=== PATIENT | male | born 1955 | race African-American/Black ===

== ENCOUNTER 2017-08-13 12:21 | Inpatient (IN) | payer OTHER ==
[~2017-08-13] VITALS: Ht 182.9 cm; Wt 112.5 kg
[2017-08-13] VITALS (17 sets, daily range): BP systolic 151–196; BP diastolic 70–93; PULSE 84–105; RESP 18–27; TEMP 98.4–98.9; O2SAT 99–100
[~2017-08-13 12:21] MED LIST: ATEN-102 PO; CLON-352 PO; DIAZ10; FURO1TAB93 PO; LISI40TA PO; MELO7.5T PO; MSIR15 PO; OXYC-360 PO; OXYC5 PO; PROT40TA PO; TERA1CAP8 PO; TRAZ50TA4 PO; TRIX0.07 TOP; VIAG50TA PO
[2017-08-13] MEDS ORDERED: EPINEPHrine HCL (1:1000) 1 MG/ML VIAL IM ONE (12:30)
[2017-08-13] MEDS ORDERED: FAMOTIDINE 20 MG/2 ML VIAL IV PUSH ONE (12:30)
[2017-08-13] MEDS ORDERED: SODIUM CHLORIDE 0.9% FLUSH 10 ML FLUSH IV FLUSH PRN (12:30)
[2017-08-13] MEDS ORDERED: SODIUM CHLOR 0.9% 1000 ML INJ 1,000 ML IV ONE (12:38)
[2017-08-13] MEDS ORDERED: ETOMIDATE 40 MG/20 ML VIAL ONE (12:39)
[2017-08-13] MEDS ORDERED: SUCCINYLCHOLINE CHLORIDE 200 MG/10 ML VIAL ONE (12:40)
[2017-08-13] MEDS ORDERED: MIDAZOLAM HCL 5 MG/ML VIAL (1 ML) IV PUSH ONE (12:45)
[2017-08-13] MEDS ORDERED: SUCCINYLCHOLINE CHLORIDE 200 MG/10 ML VIAL IV PUSH ONE (12:45)
[2017-08-13] MEDS ORDERED: ETOMIDATE 20 MG/10 ML VIAL IVP ONE (12:45)
[2017-08-13] MEDS ORDERED: SODIUM CHLORIDE 0.9% FLUSH 10 ML FLUSH IVF PRN (12:45)
[2017-08-13 12:54] LABS: AUTOMATED NEUTROPHIL # 3.6 TH/MM3 (1.8-7.7); BASOPHIL # 0.1 TH/MM3 (0-0.2); BASOPHIL % 0.7 % (0.0-2.0); EOSINOPHIL # 0.2 TH/MM3 (0-0.4); EOSINOPHIL % 2.6 % (0.0-4.0); HEMATOCRIT 37.3 % (39.0-51.0); HEMOGLOBIN 12.3 GM/DL (13.0-17.0); LYMPH % 36.6 % (9.0-44.0); LYMPHOCYTE # 2.9 TH/MM3 (1.0-4.8); MEAN CELL VOLUME 94.9 FL (80.0-100.0); MEAN CORPUSCULAR HEMOGLOBIN 31.4 PG (27.0-34.0); MEAN CORPUSCULAR HGB CONC 33.1 % (32.0-36.0); MEAN PLATELET VOLUME 8.2 FL (7.0-11.0); MONO % 14.6 % (0.0-8.0); MONOCYTE # 1.1 TH/MM3 (0-0.9); NEUT % 45.5 % (16.0-70.0); PLATELET COUNT 225 TH/MM3 (150-450); RED BLOOD COUNT 3.93 MIL/MM3 (4.50-5.90); RED CELL DISTRIBUTION WIDTH 15.3 % (11.6-17.2); WHITE BLOOD COUNT 7.9 TH/MM3 (4.0-11.0)
[2017-08-13] MEDS ORDERED: SODIUM CHLOR 0.9% 250 ML INJ 250 ML IV ONE (13:00)
[2017-08-13] MEDS ORDERED: PROPOFOL 500 MG/50 ML INJ 50 ML ONE (13:03)
[2017-08-13] MEDS ORDERED: fentaNYL CITRATE 250 MCG/5 ML AMP ONE (13:09)
[2017-08-13 13:30] LABS: BICARBONATE 22.4 MEQ/L (21.0-32.0); CALCIUM 8.4 MG/DL (8.5-10.1); CREATININE 1.7 MG/DL (0.60-1.30)
--- NOTE | 2017-08-13 13:31 | PD ---
HPI Chief Complaint: Allergic/Adverse Reaction Time Seen by Provider: 12:29 Travel History International Travel<30 days: No Contact w/Intl Traveler<30days: No Traveled to known affect area: No History of Present Illness HPI The patient 62-year-old old. He arrives with a complaint of dyspnea scratchy sensation in the throat. He has a history of angioedema from lisinopril in the past. He reports taking a new medication for muscle spasms just prior to the onset of the lower lip swelling. Shortly thereafter a scratchy sensation followed by with the patient described as difficulty speaking led to a PA evaluation which ended up with the patient coming to the ED. He received 50 mg IV Benadryl 125 mg IV Solu-Medrol and epinephrine prior to ER arrival. Symptoms initially started at 8 AM this morning. He does not recall the name of the muscle relaxant that he believes might be related to the swelling. PFSH Past Medical History Arthritis: Yes Asthma: No Autoimmune Disease: Yes (IMPAIRED GLUCOSE) Anxiety: Yes Heart Rhythm Problems: No Cancer: No Cardiovascular Problems: Yes High Cholesterol: Yes Chemotherapy: No Chest Pain: Yes Congestive Heart Failure: No Cerebrovascular Accident: No Diabetes: Yes (TYPE II) Patient Takes Glucophage: No Gastrointestinal Disorders: Yes GERD: Yes Genitourinary: Yes (INCONTINENCE) Headaches: Yes Hepatitis: Yes (HEP C) Hiatal Hernia: No Hypertension: Yes Immune Disorder: No Kidney Stones: No Musculoskeletal: Yes (DJD) Neurologic: No Psychiatric: No Reproductive: No Respiratory: No Migraines: No Radiation Therapy: No Renal Failure: Yes (UNSURE IF HE STILL HAS IT) Seizures: No Sickle Cell Disease: No Sleep Apnea: No Triglycerides - High: Yes Ulcer: Yes (STOMACH) Past Surgical History Abdominal Surgery: Yes (COLONOSCOPY) AICD: No Arteriovenous Shunt: No Cardiac Surgery: No Ear Surgery: No Endocrine Surgery: No Eye Surgery: No Genitourinary Surgery: No Gynecologic Surgery: No Insulin Pump: No Joint Replacement: No Neurologic Surgery: Yes (CERVICAL LAMINECTOMY 05/20/06) Oral Surgery: No Pacemaker: No Thoracic Surgery: No Other Surgery: Yes Social History Alcohol Use: No Tobacco Use: Yes Substance Use: No Allergies-Medications (Allergen,Severity, Reaction): Coded Allergies: aspirin (Unverified Allergy, Severe, RASH, LIP SWELLING, 08/13/17) diclofenac (Unverified Allergy, Severe, RASH, 08/13/17) etodolac (Unverified Allergy, Severe, RASH, 08/13/17) flurbiprofen (Unverified Allergy, Severe, RASH, 08/13/17) ibuprofen (Unverified Allergy, Severe, RASH, 08/13/17) indomethacin (Unverified Allergy, Severe, RASH, 08/13/17) ketoprofen (Unverified Allergy, Severe, RASH, 08/13/17) ketorolac (Unverified Allergy, Severe, RASH, 08/13/17) naproxen (Unverified Allergy, Severe, RASH, 08/13/17) oxaprozin (Unverified Allergy, Severe, RASH, 08/13/17) methocarbamol (Unverified Allergy, Mild, 08/13/17) penicillin G (Unverified Allergy, Mild, VOMITS, 08/13/17) Uncoded Allergies: NSAIDS (Allergy, Severe, SWELLS UP, 04/30/12) ALL NSAIDS (Allergy, Intermediate, 04/09/09) Reported Meds & Prescriptions Reported Meds & Active Scripts Active Reported Hytrin (Terazosin HCl) 1 Mg Cap 2 Mg PO HS Percocet (Oxycodone/Acetaminophen) 5 Mg/325 Mg Tab 1-2 Tab PO Q4H PRN FOR PAIN Trazodone Hcl (Trazodone HCl) 50 Mg Tab 25 Mg PO HS Protonix (Pantoprazole Sodium) 40 Mg Tabdr 40 Mg PO DAILY Morphine Sulfate IR 15 mg (Morphine Sulfate) 15 Mg Tab 30 Mg PO BID PRN Mobic (Meloxicam) 7.5 Mg Tab 7.5 Mg PO DAILY Prinivil (Lisinopril) 40 Mg Tab 20 Mg PO DAILY Clonidine Hcl (Clonidine HCl) 0.1 Mg Tab 0.2 Mg PO Q8 Capsaicin 0.075 % Cre 0.075 % TOP QID Oxycodone (Oxycodone HCl) 5 Mg Tab 15 Mg PO Q6 Viagra (Sildenafil Citrate) 50 Mg Tab 50 Mg PO DIRECTED Lasix (Furosemide) 40 Mg Tab 40 Mg PO DAILY Atenolol 50 Mg Tab 50 Mg PO BID Valium (Diazepam) 10 Mg Tab HS Review of Systems Except as stated in HPI: all other systems reviewed are Neg General / Constitutional: No: Fever Physical Exam Narrative GENERAL: 62-year-old male pleasant well-nourished well-developed, the patient can speak with a scratchy voice temp 97.4 Vital Signs Date Time Temp Pulse Resp B/P (MAP) Pulse Ox O2 Delivery O2 Flow Rate FiO2 08/13/17 12:59 84 20 161/70 (100) 100 Non-Rebreather 15.00 08/13/17 12:39 87 144/88 08/13/17 12:30 100 Non-Rebreather 15.00 08/13/17 12:30 79 20 100 Room Air 15.00 08/13/17 12:30 100 Non-Rebreather 15.00 08/13/17 12:27 92 22 100 SKIN: Warm and dry. HEAD: Atraumatic. Normocephalic. EYES: Pupils equal and round. No scleral icterus. No injection or drainage. ENT: No nasal bleeding or discharge. Mucous membranes pink and moist. There is generalized swelling about the lower lip with some lingual edema as well. The posterior oropharynx is not visualized. NECK: Trachea midline. No JVD. CARDIOVASCULAR: Regular rate and rhythm. RESPIRATORY: No stridor. No tachypnea. GASTROINTESTINAL: Abdomen soft, non-tender, nondistended. Hepatic and splenic margins not palpable. MUSCULOSKELETAL: Extremities without clubbing, cyanosis, or edema. No obvious deformities. NEUROLOGICAL: Awake and alert. No obvious cranial nerve deficits. Motor grossly within normal limits. Five out of 5 muscle strength in the arms and legs. Normal speech. PSYCHIATRIC: Appropriate mood and affect; insight and judgment normal. Data Data Last Documented VS Vital Signs Date Time Temp Pulse Resp B/P (MAP) Pulse Ox O2 Delivery O2 Flow Rate FiO2 08/13/17 12:59 84 20 161/70 (100) 100 Non-Rebreather 15.00 Orders Orders Basic Metabolic Panel (Bmp) (08/13/17 12:29) Complete Blood Count With Diff (08/13/17 12:29) Ecg Monitoring (08/13/17 12:29) Iv Access Insert/Monitor (08/13/17 12:29) Oximetry (08/13/17 12:29) Famotidine Inj (Pepcid Inj) (08/13/17 12:30) Sodium Chloride 0.9% Flush (Ns Flush) (08/13/17 12:30) Epinephrine (1:1000) Inj (Adrenalin (1:1 (08/13/17 12:30) Chest, Single Ap (08/13/17 12:38) Arterial Blood Gas (Abg) (08/13/17 12:38) Ecg Monitoring (08/13/17 12:38) Iv Access Insert/Monitor (08/13/17 12:38) Ng Gastric Tube Insert/Monitor (08/13/17 12:38) Urinary Catheter Insert/Apply (08/13/17 12:38) Oximetry (08/13/17 12:38) Oxygen Administration (08/13/17 12:38) Etomidate Inj (Amidate Inj) (08/13/17 12:45) Fentanyl Inj (Fentanyl Inj) (08/13/17 12:45) Succinylcholine Inj (Quelicin Inj) (08/13/17 12:45) Midazolam Inj (Versed Inj) (08/13/17 12:45) Sodium Chloride 0.9% Flush (Ns Flush) (08/13/17 12:45) Sodium Chlor 0.9% 1000 Ml Inj (Ns 1000 M (08/13/17 12:38) Etomidate Inj (Amidate Inj) (08/13/17 12:39) Succinylcholine Inj (Quelicin Inj) (08/13/17 12:40) Fresh Frozen Plasma (Ffp) (08/13/17 12:49) Blood Product Administration (08/13/17 12:49) Sodium Chlor 0.9% 250 Ml Inj (Ns 250 Ml (08/13/17 13:00) Propofol 500 Mg/50 Ml Inj (Diprivan 500 (08/13/17 13:03) Abo/Rh Blood Type (08/13/17 12:49) Fentanyl Inj (Fentanyl Inj) (08/13/17 13:09) Admit Order (Ed Use Only) (08/13/17 ) Ice Cutter / Telemetry TIMBO.Q8H (08/13/17 13:18) Vital Signs (Adult) Q4H (08/13/17 13:18) Diet Npo (08/13/17 Lunch) Activity Bed Rest (08/13/17 13:18) Labs Laboratory Tests Test 08/13/17 12:41 White Blood Count 7.9 TH/MM3 Red Blood Count 3.93 MIL/MM3 Hemoglobin 12.3 GM/DL Hematocrit 37.3 % Mean Corpuscular Volume 94.9 FL Mean Corpuscular Hemoglobin 31.4 PG Mean Corpuscular Hemoglobin Concent 33.1 % Red Cell Distribution Width 15.3 % Platelet Count 225 TH/MM3 Mean Platelet Volume 8.2 FL Neutrophils (%) (Auto) 45.5 % Lymphocytes (%) (Auto) 36.6 % Monocytes (%) (Auto) 14.6 % Eosinophils (%) (Auto) 2.6 % Basophils (%) (Auto) 0.7 % Neutrophils # (Auto) 3.6 TH/MM3 Lymphocytes # (Auto) 2.9 TH/MM3 Monocytes # (Auto) 1.1 TH/MM3 Eosinophils # (Auto) 0.2 TH/MM3 Basophils # (Auto) 0.1 TH/MM3 CBC Comment DIFF FINAL Differential Comment Blood Urea Nitrogen 19 MG/DL Creatinine 1.70 MG/DL Random Glucose 103 MG/DL Calcium Level 8.4 MG/DL Sodium Level 132 MEQ/L Potassium Level 4.4 MEQ/L Chloride Level 101 MEQ/L Carbon Dioxide Level 22.4 MEQ/L Anion Gap 9 MEQ/L Estimat Glomerular Filtration Rate 50 ML/MIN MDM Medical Decision Making Medical Screen Exam Complete: Yes Emergency Medical Condition: Yes Medical Record Reviewed: Yes Differential Diagnosis Angioedema, airway obstruction, allergic reaction Narrative Course Patient's angioedema progressed during his ER stay, during the first 30 minutes of the ER stay. New and progressive left upper lip involvement noted over the first brief period of the ED stay. Pt intubated for prophylactic airway protection. CBC & BMP Diagram 08/13/17 12:41 Calcium Level 8.4 L Last Impressions Chest X-Ray 08/13/17 1238 Signed Impressions: Service Date/Time: August 13:07 - CONCLUSION: 1. ETT in good position. 2. Mild diffuse interstitial prominence likely reflecting interstitial edema. 3. Minimal left lung base airspace disease, likely atelectasis. Ismael Garrido MD Assistance by Drs. Lubin and Criss appreciated. Pt will go to [facility] for ongoing management. Critical Care Narrative Aggregate critical care time was 45 minutes. Time to perform other separately billable procedures was not included in the critical care time. My time did not include minutes spent treating any other patients simultaneously or on activities that did not directly contribute to the patient's treatment. The services I provided to this patient were to treat and/or prevent clinically significant deterioration that could result in: Respiratory arrest I provided critical care services requiring my management, as noted below: Chart data review, documentation time, medication orders and management, vital sign assessments/reviewing monitor data, ordering and reviewing lab tests, ordering and interpreting/reviewing x-rays and diagnostic studies, care of the patient and discussion of the patient with the admitting physicians. Diagnosis Primary Impression: Angio-edema Qualified Codes: T78.3XXA - Angioneurotic edema, initial encounter Additional Impression: Required emergency intubation Admitting Information Admitting Physician Requests: Admit Kyle Cain MD August 13, 2017 13:31
--- NOTE | 2017-08-13 13:36 | RADRPT ---
EXAM DATE/TIME: 08/13/2017 13:07 [facility] COMPARISON: No previous studies available for comparison. INDICATIONS : Post intubation. Patient had an allergic reaction to medicine. MEDICAL HISTORY : Hypertension. Myocardial infarction. Hypercholesterolemia. Renal disease. Arthritis. Diabetes. He p C. SURGICAL HISTORY : Cervical laminectomy. ENCOUNTER: Initial ACUITY: 1 day PAIN SCORE: Non-responsive. LOCATION: Bilateral chest FINDINGS: Patient is intubated with ET tube at the level of the clavicles. The mild airspace disease at the lef t lung base with minimal diffuse interstitial prominence. Cardiomegaly sternal contours are within no rmal limits given portable technique. Bony thorax is intact with fixation hardware in the lower cervi kai spine. CONCLUSION: 1. ETT in good position. 2. Mild diffuse interstitial prominence likely reflecting interstitial edema. 3. Minimal left lung base airspace disease, likely atelectasis. Ismael Garrido MD on August 13, 2017 at 13:32 Board Certified Radiologist. This report was verified electronically.
[2017-08-13] MEDS ORDERED: NURSING INFORMATION XX SCH (13:45)
[2017-08-13] MEDS ORDERED: CHLORHEXIDINE GLUCONATE 2 % 1 PACK (2 CLOTHS) TOP PRN (13:45)
[2017-08-13] MEDS ORDERED: MAGNESIUM OXIDE 400 MG TAB PO PRN (13:45)
[2017-08-13] MEDS ORDERED: POTASSIUM PHOSPHATE MONOBASIC 500 MG TAB PO/TUBE PRN (13:45)
[2017-08-13] MEDS ORDERED: RESP: ALBUTEROL 2.5 MG/IPRATROPIUM 0.5 MG NEB (PRN) INH (13:45)
[2017-08-13] MEDS ORDERED: POTASSIUM PHOSPHATE MONOBASIC 500 MG TAB PO PRN (13:45)
[2017-08-13] MEDS ORDERED: SODIUM PHOSPHATE INJ 30 MMOL in SODIUM CHLOR 0.9% 250 ML INJ 240 ML IV PRN (13:45)
[2017-08-13] MEDS ORDERED: DEXTROSE 50% IN WATER 50 ML VIAL(D50) IV PUSH PRN (13:45)
[2017-08-13] MEDS ORDERED: POTASSIUM CHLOR 20 MEQ PREMIX 100 ML IV PRN ×2 (13:45)
[2017-08-13] MEDS ORDERED: hydrALAZINE HCL 20 MG/ML VIAL IV PUSH PRN (13:45)
[2017-08-13] MEDS ORDERED: MAGNESIUM SULFATE INJ 2 GM in SODIUM CHLORIDE 0.9% INJ 96 ML IV PRN (13:45)
[2017-08-13] MEDS ORDERED: POTASSIUM CHLOR 40 MEQ PREMIX 100 ML IV PRN ×2 (13:45)
[2017-08-13] MEDS ORDERED: MAGNESIUM SULFATE INJ 4 GM in SODIUM CHLORIDE 0.9% INJ 92 ML IV PRN (13:45)
[2017-08-13] MEDS ORDERED: POTASSIUM CHLORIDE 25 MEQ EFFERVESCENT TAB PO PRN (13:45)
[2017-08-13] MEDS ORDERED: POTASSIUM PHOSPHATE INJ 30 MMOL in SODIUM CHLOR 0.9% 250 ML INJ 250 ML IV PRN (13:45)
[2017-08-13] MEDS ORDERED: ONDANSETRON HCL 4 MG/2 ML VIAL IV PUSH PRN (13:45)
[2017-08-13] MEDS ORDERED: NALOXONE HCL 0.4 MG/ML AMP IV PUSH PRN (14:00)
[2017-08-13] MEDS ORDERED: DEXTROSE 5%-LACTATED RING INJ 1,000 ML IV SCH (14:00)
[2017-08-13] MEDS: diphenhydrAMINE HCL 50 MG/ML VIAL IV PUSH SCH ×2 (14:00→20:28)
[2017-08-13] MEDS: PCA - TOTAL MG DILAUDID DELIVERED PER SHIFT OTHER SCH ×2 (14:00→22:00)
--- NOTE | 2017-08-13 14:12 | HHI.HP ---
[facility] Service Critical Care Medicine Primary Care Physician [facility] Admission Diagnosis Angioedema; Intubation Diagnosis: Chief Complaint: mouth swelling Travel History International Travel<30 Days: No Contact w/Intl Traveler <30 Da: No Traveled to Known Affected Are: No History of Present Illness This is a 62yM with history of HTN and prior angioedema with Lisinopril who was driving today and had onset of facial swelling around his lower lip around 8am that progressed to full oral swelling in the same way as his last angioedema episode. He does state he took a pill for back pain this morning that was prescribed for him, and he has not taken before. He has not taken any lisinopril since his last episode of angioedema. he denies any other changes to his medical history. denies any other recent symptoms including chest pain, shortness of breath, fever, chills, n/v/c/d or abdominal pain. per EMS, he received epinephrine, benadryl, solumedrol. in our emergency department he received additional epinephrine and pepcid iv. Despite these therapies, his oral swelling continued and he began to have difficulty phonating and had worsening subjective dyspnea. He also has a history of prior cervical spinal fusion and has very limited neck mobility, as well as large neck circumference at baseline. Multidisciplinary discussion between emergency physician, anesthesiology, and critical care came to the conclusion that early urgent intubation was warranted given anticipated difficult airway and progressive angioedema despite medical therapy. The patient was intubated in the emergency department with video laryngoscopy and then taken to the ICU for ongoing management. Review of Systems Constitutional: DENIES: Diaphoretic episodes, Fatigue, Fever, Chills Eyes: DENIES: Blurred vision, Eye inflammation, Eye pain Ears, nose, mouth, throat: COMPLAINS OF: Throat pain, Hoarseness, DENIES: Hearing loss, Ear Pain, Running Nose, Epistaxis, Sinus Pain, Toothache, Odynophagia Respiratory: COMPLAINS OF: Shortness of breath, DENIES: Apneas, Cough, Snoring , Wheezing, Hemoptysis, Sputum production Cardiovascular: DENIES: Chest pain, Palpitations, Syncope, Dyspnea on Exertion , PND, Lower Extremity Edema Gastrointestinal: COMPLAINS OF: Difficulty Swallowing, DENIES: Abdominal pain, Black stools, Bloody stools, Constipation, Diarrhea, Nausea, Vomiting, Anorexia Musculoskeletal: DENIES: Back pain Neurologic: DENIES: Abnormal gait, Headache, Localized weakness, Paresthesias, Seizures, Speech Problems Psychiatric: DENIES: Anxiety, Confusion, Mood changes, Depression Past Family Social History Allergies: Coded Allergies: aspirin (Unverified Allergy, Severe, RASH, LIP SWELLING, 08/13/17) diclofenac (Unverified Allergy, Severe, RASH, 08/13/17) etodolac (Unverified Allergy, Severe, RASH, 08/13/17) flurbiprofen (Unverified Allergy, Severe, RASH, 08/13/17) ibuprofen (Unverified Allergy, Severe, RASH, 08/13/17) indomethacin (Unverified Allergy, Severe, RASH, 08/13/17) ketoprofen (Unverified Allergy, Severe, RASH, 08/13/17) ketorolac (Unverified Allergy, Severe, RASH, 08/13/17) naproxen (Unverified Allergy, Severe, RASH, 08/13/17) oxaprozin (Unverified Allergy, Severe, RASH, 08/13/17) methocarbamol (Unverified Allergy, Mild, 08/13/17) penicillin G (Unverified Allergy, Mild, VOMITS, 08/13/17) Uncoded Allergies: NSAIDS (Allergy, Severe, SWELLS UP, 04/30/12) ALL NSAIDS (Allergy, Intermediate, 04/09/09) Past Medical History Arthritis Anxiety Hyperlipidemia Type II diabetes Chronic pain syndrome GERD Headaches Urinary Incontinence Hypertension Degenerative Disk Disease Chronic Kidney Disease, unknown stage Hypertriglyceridemia Gastric Ulcer Past Surgical History Colonoscopy cervical laminectomy and fusion 05/20/2006 Reported Medications Hytrin (Terazosin HCl) 1 Mg Cap 2 Mg PO HS Percocet (Oxycodone/Acetaminophen) 5 Mg/325 Mg Tab 1-2 Tab PO Q4H PRN FOR PAIN Trazodone Hcl (Trazodone HCl) 50 Mg Tab 25 Mg PO HS Protonix (Pantoprazole Sodium) 40 Mg Tabdr 40 Mg PO DAILY Morphine Sulfate IR 15 mg (Morphine Sulfate) 15 Mg Tab 30 Mg PO BID PRN Mobic (Meloxicam) 7.5 Mg Tab 7.5 Mg PO DAILY Prinivil (Lisinopril) 40 Mg Tab 20 Mg PO DAILY Clonidine Hcl (Clonidine HCl) 0.1 Mg Tab 0.2 Mg PO Q8 Capsaicin 0.075 % Cre 0.075 % TOP QID Oxycodone (Oxycodone HCl) 5 Mg Tab 15 Mg PO Q6 Viagra (Sildenafil Citrate) 50 Mg Tab 50 Mg PO DIRECTED Lasix (Furosemide) 40 Mg Tab 40 Mg PO DAILY Atenolol 50 Mg Tab 50 Mg PO BID Valium (Diazepam) 10 Mg Tab HS Active Ordered Medications See MAR Family History reviewed and found to be noncontributory to his acute illness Social History + smoker, denies etoh, doa. Physical Exam Vital Signs Vital Signs Date Time Temp Pulse Resp B/P (MAP) Pulse Ox O2 Delivery O2 Flow Rate FiO2 08/13/17 13:15 90 18 196/93 (127) 100 Ventilator 08/13/17 13:10 93 18 179/87 (117) 100 Ventilator 08/13/17 13:05 85 20 159/81 (107) 100 08/13/17 12:59 84 20 161/70 (100) 100 Non-Rebreather 15.00 08/13/17 12:39 87 144/88 08/13/17 12:30 100 Non-Rebreather 15.00 08/13/17 12:30 79 20 100 Room Air 15.00 08/13/17 12:30 100 Non-Rebreather 15.00 08/13/17 12:27 92 22 100 Physical Exam gen: middle-aged male, sitting up in bed, in distress due to dyspnea heent: very large and edematous lower lip and tongue. moderate edema of the upper airway. minimal cervical neck extension and flexion. edentulous. large neck circumference. neck: no jvd. trachea midline. chest: tachypneic. sitting upright. nrb in place. cv: normal rate, regular rhythm. sinus by tele. abd: obese, soft, nontender, nondistended. no guarding. extr: no peripheral edema. distal pulses 2+ neuro: RASS 0. CAM -. GCS 15. follows commands. no focal deficits. Laboratory Laboratory Tests Test 08/13/17 12:41 White Blood Count 7.9 Red Blood Count 3.93 Hemoglobin 12.3 Hematocrit 37.3 Mean Corpuscular Volume 94.9 Mean Corpuscular Hemoglobin 31.4 Mean Corpuscular Hemoglobin Concent 33.1 Red Cell Distribution Width 15.3 Platelet Count 225 Mean Platelet Volume 8.2 Neutrophils (%) (Auto) 45.5 Lymphocytes (%) (Auto) 36.6 Monocytes (%) (Auto) 14.6 Eosinophils (%) (Auto) 2.6 Basophils (%) (Auto) 0.7 Neutrophils # (Auto) 3.6 Lymphocytes # (Auto) 2.9 Monocytes # (Auto) 1.1 Eosinophils # (Auto) 0.2 Basophils # (Auto) 0.1 CBC Comment DIFF FINAL Differential Comment Blood Urea Nitrogen 19 Creatinine 1.70 Random Glucose 103 Calcium Level 8.4 Sodium Level 132 Potassium Level 4.4 Chloride Level 101 Carbon Dioxide Level 22.4 Anion Gap 9 Estimat Glomerular Filtration Rate 50 Result Diagram: 08/13/17 1241 08/13/17 1241 Caprini VTE Risk Assessment Caprini VTE Risk Assessment: Mod/High Risk (score >= 2) Caprini Risk Assessment Model Point Value = 1 Point Value = 2 Point Value = 3 Point Value = 5 Age 41-60 Minor surgery BMI > 25 kg/m2 Swollen legs Varicose veins or History of unexplained or recurrent spontaneous Oral contraceptives or hormone replacement Sepsis (< 1 month) Serious lung disease, including pneumonia (< 1 month) Abnormal pulmonary function Acute myocardial infarction Congestive heart failure (< 1 month) History of inflammatory bowel disease Medical patient at bed rest Age 61-74 Arthroscopic surgery Major open surgery (> 45 min) Laparoscopic surgery (> 45 min) Malignancy Confined to bed (> 72 hours) Immobilizing plaster cast Central venous access Age >= 75 History of VTE Family history of VTE Factor V Leiden Prothrombin [id number] Lupus anticoagulant Anticardiolipin antibodies Elevated serum homocysteine Heparin-induced thrombocytopenia Other congenital or acquired thrombophilia Stroke (< 1 month) Elective arthroplasty Hip, pelvis, or leg fracture Acute spinal cord injury (< 1 month) Prophylaxis Regimen Total Risk Factor Score Risk Level Prophylaxis Regimen 0-1 Low Early ambulation 2 Moderate Order ONE of the following: *Sequential Compression Device (SCD) *Heparin 5000 units SQ BID 3-4 Higher Order ONE of the following medications: *Heparin 5000 units SQ TID *Enoxaparin/Lovenox 40 mg SQ daily (WT < 150 kg, CrCl > 30 mL/min) *Enoxaparin/Lovenox 30 mg SQ daily (WT < 150 kg, CrCl > 10-29 mL/min) *Enoxaparin/Lovenox 30 mg SQ BID (WT < 150 kg, CrCl > 30 mL/min) AND/OR *Sequential Compression Device (SCD) 5 or more Highest Order ONE of the following medications: *Heparin 5000 units SQ TID (Preferred with Epidurals) *Enoxaparin/Lovenox 40 mg SQ daily (WT < 150 kg, CrCl > 30 mL/min) *Enoxaparin/Lovenox 30 mg SQ daily (WT < 150 kg, CrCl > 10-29 mL/min) *Enoxaparin/Lovenox 30 mg SQ BID (WT < 150 kg, CrCl > 30 mL/min) AND *Sequential Compression Device (SCD) Assessment and Plan Assessment and Plan Assessment: 62yM with recurrent angioedema and impending airway compromise. critically ill. keep in ICU. HOB upright. steroids, antihistamines. will check cuff leak in 24h and re-evaluate. Active Problems: Angioedema Acute respiratory failure Chronic renal insufficiency, unknown stage Hypertension Plan: admit to ICU HOB 60 - 90 degrees prn fentanyl and dilaudid lead handler prn for pain dexamethasone 4mg iv q6h benadryl 25mg iv q6h pepcid 20mg iv q12h will hold off on lasix for now. d5 LR @ 42 cc/hr. will minimize ivf avoid ACEI. prn labetalol, hydralazine for goal sbp < 160 vent bundle nebs no SBT today wean fio2 for goal spo2 > 90% Lovenox, SCDs, pepcid. Critical care time: 49 minutes, exclusive of separately billable procedures. Code Status Full Code Discussed Condition With Dr. Kahn, Dr. Cain, at bedside Alhaji Puente MD August 13, 2017 14:12
[2017-08-13] MEDS: HYDROmorphone HCL PCA 6 MG/30 ML IV SCH ×2 (14:42→20:29)
[2017-08-13] MEDS ORDERED: ENOXAPARIN SODIUM 40 MG/0.4 ML SYRINGE SQ SCH (15:00)
[2017-08-13] MEDS: INSULIN NovoLIN REGULAR SUPPLEMENTAL SCALE SQ SCH ×2 (17:00→20:28)
[2017-08-13] MEDS ORDERED: PHENOL 1.4% SOLN 180 ML BTL OROPHARYNG PRN (18:00)
[2017-08-13] MEDS: RESP: ALBUTEROL 2.5 MG/IPRATROPIUM 0.5 MG NEB (SCH) INH ×2 (18:01→20:54)
[2017-08-13] MEDS: LABETALOL HCL 100 MG/20 ML VIAL IV PUSH PRN (18:16)
[2017-08-13] MEDS: DEXAMETHASONE SOD PHOS 4 MG/ML VIAL IV PUSH SCH ×2 (18:16→23:46)
[2017-08-13] MEDS: CHLORHEXIDINE 0.12% (ORAL KIT) 15 ML CUP MT SCH (20:27)
[2017-08-14] VITALS (9 sets, daily range): BP systolic 151–175; BP diastolic 68–88; PULSE 86–108; RESP 13–18; TEMP 98–98.9; O2SAT 99–100
[2017-08-14] MEDS ORDERED: FAMOTIDINE 20 MG/2 ML VIAL IV PUSH SCH (01:00)
[2017-08-14] MEDS: diphenhydrAMINE HCL 50 MG/ML VIAL IV PUSH SCH (02:00)
[2017-08-14] MEDS: LABETALOL HCL 100 MG/20 ML VIAL IV PUSH PRN ×2 (02:09→10:03)
[2017-08-14] MEDS: INSULIN NovoLIN REGULAR SUPPLEMENTAL SCALE SQ SCH ×2 (03:06→08:00)
[2017-08-14] MEDS: HYDROmorphone HCL PCA 6 MG/30 ML IV SCH (03:53)
[2017-08-14] MEDS ORDERED: CHLORHEXIDINE GLUCONATE 2 % 1 PACK (2 CLOTHS) TOP SCH (04:00)
[2017-08-14] MEDS: RESP: ALBUTEROL 2.5 MG/IPRATROPIUM 0.5 MG NEB (SCH) INH ×2 (04:10→10:27)
[2017-08-14 04:30] LABS: HEMATOCRIT 37.7 % (39.0-51.0); HEMOGLOBIN 12.6 GM/DL (13.0-17.0); MEAN CELL VOLUME 94.4 FL (80.0-100.0); MEAN CORPUSCULAR HEMOGLOBIN 31.5 PG (27.0-34.0); MEAN CORPUSCULAR HGB CONC 33.3 % (32.0-36.0); MEAN PLATELET VOLUME 8.3 FL (7.0-11.0); PLATELET COUNT 223 TH/MM3 (150-450); RED BLOOD COUNT 3.99 MIL/MM3 (4.50-5.90); WHITE BLOOD COUNT 10.1 TH/MM3 (4.0-11.0)
[2017-08-14 04:59] LABS: BICARBONATE 22.5 MEQ/L (21.0-32.0); CALCIUM 8.3 MG/DL (8.5-10.1); CREATININE 1.13 MG/DL (0.60-1.30)
[2017-08-14] MEDS: PCA - TOTAL MG DILAUDID DELIVERED PER SHIFT OTHER SCH (06:00)
[2017-08-14] MEDS: DEXAMETHASONE SOD PHOS 4 MG/ML VIAL IV PUSH SCH (06:11)
[2017-08-14] MEDS: CHLORHEXIDINE 0.12% (ORAL KIT) 15 ML CUP MT SCH (07:22)
[2017-08-14] MEDS ORDERED: DIPH25CA PO (08:02)
[2017-08-14] MEDS ORDERED: PRED10 PO (08:02)
[2017-08-14] MEDS ORDERED: FAMO1TAB37 PO (08:02)
--- NOTE | 2017-08-14 08:05 | HHI.DS ---
Discharge Summary Admission Date August 13, 2017 at 13:21 Discharge Date: August 14, 2017 Admitting Diagnosis Angioedema; Intubation Brief History This is a 62yM with history of HTN and prior angioedema with Lisinopril who was driving today and had onset of facial swelling around his lower lip around 8am that progressed to full oral swelling in the same way as his last angioedema episode. He does state he took a pill for back pain this morning that was prescribed for him, and he has not taken before. He has not taken any lisinopril since his last episode of angioedema. he denies any other changes to his medical history. denies any other recent symptoms including chest pain, shortness of breath, fever, chills, n/v/c/d or abdominal pain. per EMS, he received epinephrine, benadryl, solumedrol. in our emergency department he received additional epinephrine and pepcid iv. Despite these therapies, his oral swelling continued and he began to have difficulty phonating and had worsening subjective dyspnea. He also has a history of prior cervical spinal fusion and has very limited neck mobility, as well as large neck circumference at baseline. Multidisciplinary discussion between emergency physician, anesthesiology, and critical care came to the conclusion that early urgent intubation was warranted given anticipated difficult airway and progressive angioedema despite medical therapy. The patient was intubated in the emergency department with video laryngoscopy and then taken to the ICU for ongoing management. CBC/BMP: 08/14/17 0359 08/14/17 0359 Significant Findings Laboratory Tests Test 08/13/17 12:41 08/14/17 03:59 Red Blood Count 3.93 MIL/MM3 (4.50-5.90) 3.99 MIL/MM3 (4.50-5.90) Hemoglobin 12.3 GM/DL (13.0-17.0) 12.6 GM/DL (13.0-17.0) Hematocrit 37.3 % (39.0-51.0) 37.7 % (39.0-51.0) Monocytes (%) (Auto) 14.6 % (0.0-8.0) Monocytes # (Auto) 1.1 TH/MM3 (0-0.9) Blood Urea Nitrogen 19 MG/DL (7-18) 19 MG/DL (7-18) Creatinine 1.70 MG/DL (0.60-1.30) Calcium Level 8.4 MG/DL (8.5-10.1) 8.3 MG/DL (8.5-10.1) Sodium Level 132 MEQ/L (136-145) Estimat Glomerular Filtration Rate 50 ML/MIN (>89) 79 ML/MIN (>89) Random Glucose 166 MG/DL (74-106) PE at Discharge gen: middle-aged male, sitting up in bed, no acute distress. heent: perrl. nc. at. edema resolved. neck: no jvd. trachea midline. chest: room air. unlabored. equal chest rise. cv: normal rate, regular rhythm. sinus. abd: soft, obese, nontender, nondistended. no guarding. extr: no edema. neuro: RASS 0. GCS 15. CAM - . follows commands. no focal deficits. Hospital Course patient's edema improved. he was extubated this morning 08/14. he tolerated a diet. long discussion about avoiding any medication he took yesterday that may have caused his angioedema. patient asked to go home. felt back to baseline. Pt Condition on Discharge: Stable Discharge Disposition: Discharge Home Discharge Instructions DIET: Follow Instructions for: As Tolerated, No Restrictions Activities you can perform: Regular-No Restrictions Alhaji Puente MD August 14, 2017 08:05
[2017-08-14] MEDS ORDERED: diphenhydrAMINE HCL 25 MG CAP PO SCH (09:00)
[2017-08-14] MEDS ORDERED: predniSONE 10 MG TAB PO SCH (09:00)
[2017-08-14] MEDS ORDERED: FAMOTIDINE 20 MG TAB PO SCH (09:00)
== END 2017-08-14 13:30 | disposition home or self-care (01) | DRG 915 ==
LOC: NEPE 12:21 → NEDA 13:21 → N03B 13:48
PROVIDERS: ADMIT Internal Medicine Critical Care Medicine; ATTEND Internal Medicine Critical Care Medicine
PROC: 5A1935Z Respiratory Ventilation, Less than 24 Consecutive Hours (ICD-10-PCS; principal; 2017-08-13)
PROC: 0BH17EZ Insertion of Endotracheal Airway into Trachea, Via Natural or Artificial Opening (ICD-10-PCS; 2017-08-13)
DX: T78.3XXA Angioneurotic edema, initial encounter (principal); J96.00 Acute respiratory failure, unspecified whether with hypoxia or hypercapnia; E11.22 Type 2 diabetes mellitus with diabetic chronic kidney disease; T48.205A Adverse effect of unspecified drugs acting on muscles, initial encounter; E78.1 Pure hyperglyceridemia; N18.9 Chronic kidney disease, unspecified; K21.9 Gastro-esophageal reflux disease without esophagitis; I12.9 Hypertensive chronic kidney disease with stage 1 through stage 4 chronic kidney disease, or unspecified chronic kidney disease; G89.4 Chronic pain syndrome; E78.5 Hyperlipidemia, unspecified; M19.90 Unspecified osteoarthritis, unspecified site; F17.200 Nicotine dependence, unspecified, uncomplicated; F41.9 Anxiety disorder, unspecified; Z88.0 Allergy status to penicillin; Z88.6 Allergy status to analgesic agent; Z98.1 Arthrodesis status
CPT/HCPCS: 31500; 71045; 80048; 82948; 85025; 85027; 86900; 86901; 94002; 94640; 96372; 96374; 96375; J0171; J0330; J1100; J1170; J1200; J1650; J3010; J7121; J7512